=== PATIENT | male | born 1960 ===

== ENCOUNTER → 2024-02-20 09:51 | Outpatient (REF) | payer BC, SELFPAY | LOC: HWRCS 09:51 | PROVIDERS: ATTENDING PHYSICIAN Internal Medicine | DX: I10 Essential (primary) hypertension (principal) | CPT/HCPCS: 93306 ==

== ENCOUNTER → 2024-05-08 15:58 | Outpatient (REF) | payer BC, SELFPAY | LOC: HWRAD 15:58 | PROVIDERS: ATTENDING PHYSICIAN Internal Medicine | DX: M25.551 Pain in right hip (principal) | CPT/HCPCS: 73502 ==

== ENCOUNTER → 2025-05-24 07:55 | Outpatient (REF) | payer BC, SELFPAY | LOC: HWRAD 07:55 | PROVIDERS: ATTENDING PHYSICIAN Internal Medicine Critical Care Medicine | DX: Z00.00 Encounter for general adult medical examination without abnormal findings (principal) | CPT/HCPCS: 71046 ==

== ENCOUNTER 2025-10-15 11:31 | Emergency (ER) | payer MEDICARE, BC, SELFPAY ==
[2025-10-15 11:38] VITALS: BP 136/77
[2025-10-15 12:15] VITALS: BMI 31.6
[2025-10-15 12:29] LABS: Hematocrit 43.4 % (39.0-52.0); Hemoglobin 14.8 g/dL (13.0-18.0); Mean Corp Hgb Conc. 34.1 g/dL (33.0-37.0); Mean Corpuscular Volume 86.3 fL (80.0-94.0); Nucleated Red Blood Cells % 0 % (-); Platelet Count 305 10^3/uL (130-400); Red Cell Dist. Width 12.8 % (11.5-14.5)
[2025-10-15 12:42] LABS: ALT (SGPT) 20 U/L (0-50); AST (SGOT) 24 U/L (17-59); Albumin 4.6 g/dl (3.5-5.0); Alkaline Phosphatase 95 U/L (38-126); Blood Urea Nitrogen 18 mg/dl (9-20); Calcium 10.3 mg/dl (8.4-10.2); Carbon Dioxide 28 mmol/L (22-30); Chloride 102 mmol/L (98-107); Glucose 133 mg/dl (70-99); Potassium 4.3 mmol/L (3.5-5.1); Sodium 137 mmol/L (135-145); Total Protein 7.9 g/dl (6.3-8.2); eGFR > 60.00
--- NOTE | 2025-10-15 12:48 | ED.GENMED ---
History of Present Illness
General
Chief Complaint: Chest Pain
Time Seen by Provider: 10/15/25 12:28
History of Present Illness
History of Present Illness:
65-year-old male with past medical history of hypertension, hyperlipidemia, diabetes, and GERD, here today for evaluation of chest pain that has been ongoing over the past 3 days. Chest pain comes and goes and is noted along the left upper anterior
chest wall. He did note feeling winded this morning but has had no active shortness of breath. No fevers. No cough or URI symptoms. No vomiting. He did take omeprazole with improvement in symptoms.
Past History
Past History
ED Past Medical History: GERD, HTN, Hypercholesterolemia and NIDDM
ED Past Surgical History: None
Social History
Tobacco: Former smoker
Alcohol: Occasional
Drug: None
Personal:
Living: with family
Review of Systems
Review of Systems
All Other Systems: ROS reviewed and negative except as documented in HPI and ROS
Phy Exam
Physical Exam
Physical Exam:
GENERAL: Alert , in no apparent distress
EYE: pupils equal and reactive
NECK: Supple
ENT: o/p clr, mmm.
CARDIAC: Regular rate and rhythm .
LUNGS: Clear breath sounds bilaterally, no acute respiratory distress, no wheezes/rales/rhonchi
ABDOMEN: Soft, without focal tenderness, no r/g, no cvat
NEUROLOGICAL: Alert and oriented, no focal neuro deficits
SKIN: Warm and dry, skin intact.
MUSCULOSKELETAL: No edema, well perfused.
PSYCH: Normal and appropriate interaction.
Scores
Heart Score for Chest Pain Patients
STEMI patient?: No
History: Slightly or Non-Suspicious
ECG: Normal
Age: >45 - <65 years
Risk Factors: >/= 3 Risk Factors or History of CAD
Troponin: </= Normal Limit
Heart Score for Chest Pain Patients: 3
Heart Score Risk: 2.5% MACE over next 6 weeks
Course
Orders/Labs/Results
Orders:
Orders
10/15/25 11:32
Electrocardiogram (*1) Urgent
Reason for Study: Chest Pain
EKG- Treatment ONCE
10/15/25 12:08
Cardiac Monitoring- Treatment ONCE
IV Insert/Care/Rem.- Treatment PRN
10/15/25 12:21
Complete Blood Count/With Diff Urgent
Comprehensive Metabolic Panel Urgent
Lipase Urgent
Comment: ADD
Troponin I Urgent
10/15/25 12:50
Aspirin Chewable [Low Strength Aspirin] 324 mg PO NOW STA
Famotidine [Pepcid] 20 mg PO NOW STA
Mag Hydrox/Al Hydrox/Simeth [Maalox] 30 ml PO NOW STA
CR Chest - 2 Views Urgent
Comment:
Reason For Exam: chest pain
10/15/25 13:04
Add On- LAB Urgent
Tests Added?: lipase
10/15/25 15:34
Electrocardiogram (*1) Urgent
Reason for Study: Chest Pain
EKG- Treatment ONCE
10/15/25 15:42
Troponin I Urgent
Abnormal Lab Results
10/15/25
12:21
Absolute Monos (auto) 0.8 H 10^3/uL
(0.1-0.6)
Lymphocytes % 19.1 L %
(20.5-51.1)
Glucose 133 H mg/dl
(70-99)
Calcium 10.3 H mg/dl
(8.4-10.2)
10/15/25 12:21
10/15/25 12:21
Vital Signs
Initial and Last Documented VS:
Initial Vital Signs
Temp Pulse Resp BP Pulse Ox
98.1 F 88 20 136/77 99
10/15/25 11:38 12/02/25 11:38 10/15/25 11:38 10/15/25 11:38 10/15/25 11:38
Last Documented Vital Signs
Temp Pulse Resp BP Pulse Ox
98.1 F 76 22 110/74 97
10/15/25 11:38 10/15/25 15:30 10/15/25 15:30 10/15/25 15:00 10/15/25 15:30
MDM/Problems Addressed
Differential Diagnosis Includes:
65-year-old male with past medical history of hypertension, hyperlipidemia, diabetes, and GERD, here today for evaluation of chest pain. Patient well-appearing. Vitals grossly within normal limits. Physical examination as above. Will obtain
cardiac workup. Will provide acid blocking medication.
10/15/2025 17:15: Cardiac workup grossly unremarkable. Chest x-ray negative. EKG x 2 negative. Patient reassessed. He reports improvement in symptoms overall. I suspect his symptoms may be GI related given improvement in symptoms with acid
blockade. We discussed supportive measures and close follow-up. Heart score is 3. Low suspicion for ACS. Recommend cardiology evaluation as an outpatient as well as GI. Return precautions provided. All questions answered. Stable for discharge.
*Pulse Oximetry
SaO2: 99
Oxygen Mode of Delivery: Room air
Patient hypoxic: no
*Critical Care Note
Total Time (30-74mins, 75-104mins- exclusive of procedures): Not Applicable
ED Attending Note
-
Portions of this chart may have been created with voice recognition software.� Occasional wrong word or��sound alike� substitutions may have occurred due to the inherent limitations of voice recognition software.
Discharge Plan
Departure
Patient Disposition: Home (Routine Discharge)
Date of Disposition: 10/15/25
Time of Disposition: 17:01
Patient with high blood pressure during this ER visit?: No
Condition: Fair
Covid-19: Not Applicable
Discharge Problem:
Chest pain
Instructions: Chest Pain CBC Follow Up
Prescriptions:
No Action
omeprazole 40 MG capsule,delayed release(DR/EC)
40 mg PO DAILY
acetaminophen [Pain Relief ES (acetaminophen)] 500 MG tablet
2 tab PO PRN PRN (Reason: pain)
lisinopril 10 MG tablet
20 mg PO DAILY
aspirin 81 MG tablet,chewable
81 mg PO DAILY
multivitamin Tablet
1 tab PO DAILY
metformin 500 mg Tablet
500 mg PO BID
atorvastatin 10 mg Tablet
10 mg PO DAILY
Vitamin B-12
1 tab PO DAILY
Vitamin C
1 tab PO DAILY
Vitamin D3
1 tab PO DAILY
Referrals:
Eze Bowen MD [Active, Cardiology] - Follow up in 2-3 days
Mohit Michaud CRNP [Family Provider] - Follow up in 2-3 days
Activity Restrictions/Additional Instructions:
Follow-up with cardiology for further testing and evaluation.
Return for any new, worsening, or concerning symptoms
Interventions
Interventions:
*Risk Screen - Suicide Last Done: 10/15/25 11:38
*General Assessment Last Done: 10/15/25 11:38
*Neglect/Abuse Screening Last Done: 10/15/25 11:38
[facility] Risk Assessment Tool Last Done: 10/15/25 12:15
*Nursing Disposition Last Done: 10/15/25 17:09
ED- Cardiac Assessment Last Done: 10/15/25 12:15
Discharge Date and Time
Print Language: FRENCH
[2025-10-15 12:53] LABS: Troponin I < 0.012 ng/ml
[2025-10-15] MEDS: LOW STRENGTH ASPIRIN 324 MG PO (13:20)
[2025-10-15] MEDS: PEPCID 20 MG PO (13:21)
[2025-10-15] MEDS: MAALOX 30 ML PO (13:21)
[2025-10-15 13:51] LABS: Lipase 105 U/L (23-300)
[2025-10-15 14:06] VITALS: BP 121/77
[2025-10-15 15:00] VITALS: BP 110/74
[2025-10-15 16:19] LABS: Troponin I < 0.012 ng/ml
== END 2025-10-15 17:39 | disposition home or self-care (01) ==
LOC: EMR 11:31
PROVIDERS: Physician Assistant; EMERGENCY PHYSICIAN Emergency Medicine
DX: R07.89 Other chest pain (principal); I10 Essential (primary) hypertension; E78.00 Pure hypercholesterolemia, unspecified; E11.9 Type 2 diabetes mellitus without complications; I25.10 Atherosclerotic heart disease of native coronary artery without angina pectoris; Z87.891 Personal history of nicotine dependence; K21.9 Gastro-esophageal reflux disease without esophagitis
CPT/HCPCS: 99283; 71046; 80053; 83690; 84484; 85025; 93005

== ENCOUNTER → 2025-10-30 08:01 | Outpatient (REF) | payer BC, SELFPAY | LOC: HWRCS 08:01 | PROVIDERS: ATTENDING PHYSICIAN Nurse Practitioner | DX: R06.09 Other forms of dyspnea (principal) | CPT/HCPCS: 93306 ==